=== PATIENT | male | born 1985 | race Caucasian/White ===

== ENCOUNTER 2025-04-05 10:47 | Emergency (ER) | payer OTHER ==
[~2025-04-05] VITALS: Ht 182.9 cm; Wt 117.3 kg
[2025-04-05 10:50] VITALS: TEMP 98
--- NOTE | 2025-04-05 11:39 | RADIOLOGY REPORT ---
CLINICAL INDICATION: RT.KNEE PAIN AFTER FALL TECHNIQUE: DI KNEE, COMP 4 VW MIN Comparison: None FINDINGS/IMPRESSION: : There is no evidence of acute fracture or dislocation. Soft tissues are unremarkable. Moderate to severe patellofemoral degenerative joint space narrowing.
--- NOTE | 2025-04-05 13:59 | RADIOLOGY REPORT ---
EXAM: DI LUMBAR SPINE LIMITED INDICATION: low back pain TECHNIQUE: 3 views of the lumbar spine COMPARISON: None FINDINGS/IMPRESSION: No radiographic evidence of an acute osseous abnormality. There is no acute fracture, osseous malalig nment, or aggressive focal osseous lesion. Minimal anterior superior endplate height loss of T12 and L1. Relative bony foraminal narrowing at L4-5 and L5-S1.
--- NOTE | 2025-04-05 14:22 | Physician Documentation ---
History of Present Illness ~ Chief Complaint: Knee Pain Stated Complaint: KNEE AND LEG PAIN Time Seen by MD: 10:57 HPI The patient is seen today with complaints of having fallen through a deck and landed on his feet about 4 ft down. Patient states this occurred about three weeks ago. Patient states he is having numbness and tingling and weakness of his right lower extremity. Seven weakness with right knee flexion and right knee extension and right hip flexion. He also states he has numbness of his right thigh. Patient states his symptoms started out as sciatica down his right leg but he tried to works with the pain but states the weakness is preventing him from working through this. He has no other concern or complaint at this time. He denies any saddle anesthesia or changes in bowel or bladder habits. Medication Reconciliation Allergies: Coded Allergies: Penicillins (Verified Allergy, Unknown, 04/05/25) Review of Systems Constitutional: Denies: chills, fever, weakness Eyes: Denies: pain, blurred vision ENT: Denies: ear pain, nose pain, throat pain, mouth pain Respiratory: Denies: cough, shortness of breath Cardiovascular: Denies: chest pain, palpitations Gastrointestinal: Denies: abdominal pain, nausea, vomiting Genitourinary: Denies: burning, dysuria Male Genitalia: Denies: penile discharge, testicular pain Neurological: Denies: headache, dizziness Musculoskeletal: Denies: pain, swelling Integumentary: Denies: rash, lesions Allergic/Immunologic: Denies: hives, itching Hematologic/Lymphatic: Denies: no symptoms reported Psychiatric: Denies: depression, anxiety Physical Exam Physical Exam Vital Signs: Temperature: 98.0, Source: Temporal, Heart Rate: 100, Respiratory Rate: 18, BP: 156/105, Pulse Oximetry: 95, Weight: 117.300 Physical Exam General: Awake and Alert, no acute distress. HEENT: Conjunctiva pink, Sclera clear, Mucus Membranes moist. Neck: Supple without masses and tenderness. Resp: Unlabored. Lungs clear to auscultation bilaterally. Heart: Regular Rate and rhythm, normal S1 and S2 without murmur, rub or gallop. Musculoskeletal: Patient on exam does have decreased range of motion of the lumbar spine in all planes of motion. Patient has decreased light touch sensation of the right thigh. Patient has 3/5 strength of right hip flexion and right knee extension. Patient is otherwise neurovascularly intact distally. Motor function intact distally. Extremities: No cyanosis,clubbing or edema. Skin: Warm and Dry. Progress Results/Orders Results/Orders Orders - JEN MATHIS PAC Knee, Complete (04/05/25 10:54) Lumbar Spine Limited (04/05/25 13:08) Completed Orders - JEN MATHIS PAC Knee, Complete (04/05/25 10:54) Lumbar Spine Limited (04/05/25 13:08) Vital Signs 04/05/25 10:50 Temp 98.0 Pulse 100 Resp 18 B/P (MAP) 156/105 Pulse Ox 95 EKG/XRAY/CT/US/VASC/MRI Bone/Soft Tissue X-Ray (Spine) : Additional Comment X-ray of lumbar spine interpreted by myself today shows no sign of acute fracture, bones in anatomic alignment, no osteolytic or blastic lesions. DIAGNOSTIC RADIOLOGY Patient: MAGGY MOSER Medical Record: [id number] [place] : 1985, Age: 39 Sex: Male Location: ER Patient Status: [facility] ER Service Date/Time: 04/05/258 Ordering Physician: JEN MATHIS PAC Exam: LUMBAR SPINE LIMITED EXAM: DI LUMBAR SPINE LIMITED INDICATION: low back pain TECHNIQUE: 3 views of the lumbar spine COMPARISON: None FINDINGS/IMPRESSION: No radiographic evidence of an acute osseous abnormality. There is no acute fracture, osseous malalignment, or aggressive focal osseous lesion. Minimal anterior superior endplate height loss of T12 and L1. Relative bony foraminal narrowing at L4-5 and L5-S1. Electronically Signed by:REESE LOPEZ MD Date & Time: 04/05/25 1359 Dictated by: REESE LOPEZ MD Dictation date and time: 04/05/25 1356 Primary Care Provider: NO PRIMARY CARE PROVIDER cc: JEN MATHIS PAC ~ Bone/Soft Tissue X-Ray (Ext.) : Additional Comment X-ray of right knee interpreted by myself shows no sign of acute fracture, Moderate to severe patellofemoral degenerative joint space narrowing, no osteolytic or blastic lesions, bones in anatomic alignment. DIAGNOSTIC RADIOLOGY Patient: MAGGY MOSER Medical Record: [id number] [place] : 1985, Age: 39 Sex: Male Location: ER Patient Status: [facility] ER Service Date/Time: 04/05/25/ 1054 Ordering Physician: JEN MATHIS PAC Exam: KNEE, COMP 4 VW MIN CLINICAL INDICATION: RT.KNEE PAIN AFTER FALL TECHNIQUE: DI KNEE, COMP 4 VW MIN Comparison: None FINDINGS/IMPRESSION: : There is no evidence of acute fracture or dislocation. Soft tissues are unremarkable. Moderate to severe patellofemoral degenerative joint space narrowing. Electronically Signed by:NHAN MELENDEZ MD Date & Time: 04/05/25 1136 Dictated by: NHAN MELENDEZ MD Dictation date and time: 04/05/25 1136 Primary Care Provider: NO PRIMARY CARE PROVIDER cc: JEN MATHIS PAC ~ Medical Decision Making Findings The patient is seen today with complaints of having fallen through a deck and landed on his feet about 4 ft down. Patient states this occurred about three weeks ago. Patient states he is having numbness and tingling and weakness of his right lower extremity. Seven weakness with right knee flexion and right knee extension and right hip flexion. He also states he has numbness of his right thigh. Patient states his symptoms started out as sciatica down his right leg but he tried to works with the pain but states the weakness is preventing him from working through this. He has no other concern or complaint at this time. He denies any saddle anesthesia or changes in bowel or bladder habits. Patient did have x-ray taken of right knee and lumbar spine that showed no sign of acute injury or fracture. Patient will follow up with primary care for referral to orthopedic site specialist and for referral for MRI of the lumbar spine given concern for nerve impingement given his muscle weakness and numbness and tingling. Patient will return to ED with any worsening, concerning or changing symptoms. Patient will be taken off work until after he sees the orthopedic surgeon. Departure Disposition: HOME / SELF CARE / HOMELESS Impression: Primary Impression: Right leg weakness Additional Impression: Lumbar radiculopathy, acute Condition: Stable Discharge Instructions: Lumbosacral Radiculopathy Additional Instructions: Patient did have x-ray taken of right knee and lumbar spine that showed no sign of acute injury or fracture. Patient will follow up with primary care for referral to orthopedic site specialist and for referral for MRI of the lumbar spine given concern for nerve impingement given his muscle weakness and numbness and tingling. Patient will return to ED with any worsening, concerning or tommie nging symptoms. Patient will be taken off work until after he sees the orthopedic surgeon. Referrals: NO PRIMARY CARE PROVIDER (PCP) Prescriptions Oxycodone HCl/Acetaminophen (Percocet 5-325 mg Tablet) 5 Mg-325 Mg Tablet 1 TAB PO Q12H PRN PRN for pain for 5 Days, #10 TAB 0 Refills Prov: JEN MATHIS 04/05/25 Methocarbamol (Methocarbamol) 750 Mg Tablet 1-2 TAB PO Q8H for 15 Days, #90 TAB 0 Refills Prov: JEN MATHIS 04/05/25 Meloxicam (Meloxicam) 15 Mg Tablet 1 TAB PO DAILY for 30 Days, #30 TAB 0 Refills Prov: JEN MATHIS 04/05/25 Signature Scribe Signature: No scribe Attestation: No scribe JEN MATHIS Apr 05, 2025 14:22
[2025-04-05] MEDS ORDERED: METH-798 PO (14:45)
[2025-04-05] MEDS ORDERED: OXYC-145 PO (14:45)
[2025-04-05] MEDS ORDERED: MELO-102 PO (14:45)
[2025-04-05] MEDS: ketorolac trometh 30MG/ML vial 30 MG/ML VIAL IM STA (14:47)
[2025-04-05 14:50] VITALS: BP 134/76; PULSE 74; RESP 18; O2SAT 98
== END 2025-04-05 14:51 | disposition home or self-care (01) ==
LOC: ER 10:48
DX: M54.16 Radiculopathy, lumbar region (principal); Z88.0 Allergy status to penicillin
CPT/HCPCS: 72100; 73564; 96372; 99284; J1885